=== PATIENT | male | born 1985 | race Caucasian/White ===

== ENCOUNTER 2016-09-16 13:21 | Emergency (ER) | payer SELFPAY ==
[~2016-09-16] VITALS: Ht 177.8 cm; Wt 72.6 kg
--- NOTE | 2016-09-16 13:53 | Emergency Room Report ---
History of Present Illness Time Seen by MD Vasquez Presenting Problem in Triage Pt arrived:Walked Presenting Problem:PT STATES HE FELL APPROX 8 FEET FROM A ROOF, PT STATE HE HIT IS FACE WHEN HE FELL. PT DENIES LOC OR DIZZINESS. PT DENIES VISION ISSUE. C/O PAIN IN NOSE ARE, NOSE IS OBVIOUSLY SWOLLEN WITH ABRASIONS NOTED. Onset of symptoms date/time:09/16/1607/23/1215 or onset unknown for: Treatment Prior to Arrival: [facility] Provided by: Sepsis Risk Assessment: Temp: 98.1 B/P: 151/92 MAP: 111 Pulse: 94 Resp: 18 Recent fever? N Clinical Suspician of Infection? N Mental Status: 1 - Regular (Normal Baseline) Sepsis Risk:Low Sepsis Risk Have you (or family members/close friends) recently traveled outside the [place]? N If Yes, where/when: Have you had exposure to infectious disease within the past month? N TB? Other? Specify: Comment The patient fell about 8 feet off a roof and hit his face on concrete. He denies loss of consciousness. He does not have a headache. He has a laceration above his RIGHT eyebrow and some abrasions or minor lacerations of his nose. He says currently he does not have any significant pain anywhere. No vomiting. No visual disturbance. No neck pain. No chest, abdominal or extremity injury. Tetanus shot is up-to-date. He did have epistaxis. He is able to breathe out of both nares. His dentition feels intact and his jaw does not hurt with movement. No facial numbness or diplopia. ALLERGIES Coded Allergies: No Known Allergies (09/16/16) Home Medications Reported Medications No Known Home Medications History Medical History General CAD? No Angina: No MO: No Hypertension? No Hyperlipidemia? No CHF? No DVT? No PE? No COPD? No Asthma? No Anemia? No GERD? No Gastric ulcers? No GI Bleed? No Hernia? No Thyroid Problems? No Hypothyroidism? No CVA? No Seizures? No Diabetes? No Renal Insuffiency? No End Stage Renal Disease? No UTI? No Stones? No BPH? No GB Disease: No Nephritic Syndrome? No Asplenia? No Hepatitis? No Sickle Cell Disease? No Arthritis? No Migraines? No Cataracts? No Glaucoma? No MRSA? No HIV? No TB? No Anxiety? No Depression? No Cancer? No More? No Immunization Hx DT/Tetanus 1-4 Years Ago Surgical Hx Previous Surgery?N Social History Smoking Hx Smoker: Never Smoker Tobacco: Yes Type Chew Packs/day < 1 Pack Alcohol Alcohol: No Review of Systems All Other Systems Reviewed and Negative ENT see HPI. Respiratory denies shortness of breath Cardiovascular denies chest pain, denies syncope Gastrointestinal denies abdominal pain, denies vomiting Musculoskeletal denies back pain, denies neck pain Psychiatric/Neurological denies headache Physical Exam Vital Signs Vital Signs Date Time Temp Pulse Resp B/P Pulse O2 O2 Flow FiO2 Ox Delivery Rate 09/16 1417 77 16 135/72 96 09/16 1322 98.1 94 18 151/92 96 General Appearance normal appearance, WD/WN Eye Exam - bilateral eye normal exam, bilateral eye PERRL, bilateral eye EOMI Ear, Nose, Throat hearing grossly normal, dried blood in both nares without active epistaxis. Nasal septum midline without septal hematomas. tenderness of the nasal bones. No gross deformity. Edema present., abrasions over the bridge of the nose along with a small 3 mm laceration., remainder of facial bones nontender., 2 cm laceration above RIGHT eyebrow, well approximated. Neck normal inspection, non-tender, supple, full range of motion Respiratory Status Yes: trachea midline, chest symmetrical, non tender chest. No: respiratory distress. Lung Sounds bilateral: normal breath sounds, lungs clear. Cardiovascular normal exam, regular rate/rhythm, no peripheral edema, no gallop, no JVD, no murmur, no rub, normal peripheral pulses Peripheral Pulses Pulses normal Yes Gastrointestinal normal bowel sounds, normal exam, non tender, soft, no organomegaly Back normal inspection, no CVA tenderness, no vertebral tenderness Extremities non-tender, normal range of motion, normal inspection Neurologic alert, melter loader II-XII nml as tested, normal exam, oriented x 3 Mental status normal mood/affect Skin intact, normal color, warm/dry Medical Decision Making LABS/Meds/Orders Pt receiving controlled substance in ED? Yes Guillaume was queried for this patient? No Reason not queried - emergent pt cond=no time Results/Orders Orders Procedure Date/time Status DIET-NOTHING BY MOUTH 09/16 D Active DERMABOND WOUND CLOSURE 09/[address] HEAD REQ 09/[address] SCAN REQ 09/16 133 Complete XRAY/CT/US XRAY/CT/US CT head, C-spine, maxillofacial Comment CT scan interpreted by radiologist: Maxillofacial: Comminuted nasal bone and nasal septum fractures. No septal hematoma seen. Cervical spine: Reversal of lordosis, no fracture or dislocation. Head: No acute intracranial process. Procedures Laceration/Wound Repair Progress Laceration Repair Performed by: RAJENDRA GALLEGOS Consent: Verbal consent obtained. Risks and benefits: risks, benefits and alternatives were discussed Consent given by: patient Patient identity confirmed: verbally with patient Laceration location: Face Laceration length: 3 cm Prep: Hibiclens cleansing. Normal saline irrigation. Sterile Drape. Patient sedated: no Closure material: Dermabond Complexity: simple Patient tolerance: Patient tolerated the procedure well with no immediate complications Departure Departure Disposition DC Home or Self Care(routine) Clinical Impression Primary Impression: Nasal bone fracture Qualifiers: Encounter type: initial encounter Fracture type: open Qualified Code: S02.2XXB - Fracture of nasal bones, initial encounter for open fracture Secondary Impressions: Facial abrasion Qualifiers: Encounter type: initial encounter Qualified Code: S00.81XA - Abrasion of other part of head, initial encounter Facial laceration Qualifiers: Encounter type: initial encounter Qualified Code: S01.81XA - Laceration without foreign body of other part of head, initial encounter Fall from roof Qualifiers: Encounter type: initial encounter Qualified Code: W13.2XXA - Fall from, out of or through roof, initial encounter Nasal septum fracture Qualifiers: Encounter type: initial encounter Fracture type: open Qualified Code: S02.2XXB - Fracture of nasal bones, initial encounter for open fracture Condition STABLE Referrals Eyad ROBERTS,Nico Winslow Call to set up appointment to be seen within one week Patient Instructions DI for Closed Head Injury, DI for Nose Fracture Additional Instructions Ice 20 minutes 4-5 times a day as needed for swelling and pain. Sleep with head elevated on several pillows for 2-3 days. Ibuprofen or [place] for pain. Follow-up with ears nose and throat within 1 week. Additional instructions for HEAD INJURY: Return immediately if severe headache, vomiting, problems with vision or speech, numbness or weakness of the extremities, or severe neck pain. Prescriptions Current Visit Scripts Cephalexin (Keflex 500MG) 500 MG PO QID #40 CAP HYDROCODONE/ACETAMINOPHEN ([place] 5-325 Tablet) 1 TAB PO Q6HP PRN pain #10 TAB Ibuprofen (Ibuprofen 800MG) 800 MG PO Q8HP PRN pain #15 TAB ED Critical Care Critical Care No at 0997
--- NOTE | 2016-09-16 14:23 | RADIOLOGY REPORT PS360 ---
CT HEAD W/O CONTRAST HISTORY: Headache following injury, right supraorbital abrasion FELL , PAIN COMPARISON: None TECHNIQUE: Axial images obtained without contrast. Brain and bone windows reviewed. FINDINGS: No midline shift, mass effect, intracranial hemorrhage, hydrocephalus, or extra-axial fluid collection is evident. The calvarium has an unremarkable appearance. No mastoid effusion. The visualized paranasal sinuses are unremarkable. Please see facial CT for description of facial fractures. IMPRESSION: No acute intracranial pathology.
--- NOTE | 2016-09-16 14:25 | RADIOLOGY REPORT PS360 ---
CT CERVICAL SPINE W/O CONT INDICATION: Neck pain following injury FELL , PAIN COMPARISON: None TECHNIQUE: Axial images are obtained without contrast. Sagittal and coronal reformatted images are reviewed as well. FINDINGS: Normal alignment. There is slight reversal cervical lordosis which may be due to patient positioning or muscle spasm. No fracture or dislocation. No prevertebral soft tissue swelling or lytic change. Lung apices are clear. IMPRESSION: 1. Reversal of lordosis otherwise negative CT cervical spine.
--- NOTE | 2016-09-16 14:29 | RADIOLOGY REPORT PS360 ---
CT SINUS (MAX-FACIAL W/O CONT) CLINICAL INDICATION: Facial pain and swelling following injury, nasal and right supraorbital abrasion FELL , PAIN COMPARISON: None TECHNIQUE:Axial, sagittal, and coronal images are generated and reviewed without contrast COMPARISON: None FINDINGS:Comminuted fracture involves the nasal bone bilaterally. There is mild leftward angulation of the distal aspect of the nasal bone as well as mild leftward displacement of the intranasal bone fragments by approximately 2 mm. There is a comminuted nasal septal fracture with a nondisplaced fracture involving the mid to anterior aspect of the nasal septum comminuted fracture involving the mid to posterior aspect of the nasal septum. The cortex is buckled toward the left at this area. There is soft tissue swelling over the nose. No sinus air-fluid level is evident. There is mild opacification of the right ethmoid sinus anteriorly and there are small retention cysts of the maxillary sinuses bilaterally. No other fractures are apparent. The orbits evident unremarkable appearance. IMPRESSION: 1. Comminuted nasal bone fracture. 2. Comminuted nasal septal fracture. No obvious septal hematoma
[2016-09-16] MEDS ORDERED: KEFLEX500 M1 PO (14:53)
[2016-09-16] MEDS ORDERED: IBUPROFEN800 MG PO (14:53)
[2016-09-16] MEDS ORDERED: NORCO 325 MG-51 TAB PO (14:53)
[2016-09-16 15:09] VITALS: BP 135/76
== END 2016-09-16 15:10 | disposition home or self-care (01) ==
LOC: ER 13:21
PROC: 0JQ10ZZ Repair Face Subcutaneous Tissue and Fascia, Open Approach (ICD-10-PCS; principal; 2016-09-16)
DX: S01.81XA Laceration without foreign body of other part of head, initial encounter (principal); S02.2XXB Fracture of nasal bones, initial encounter for open fracture; W13.2XXA Fall from, out of or through roof, initial encounter; F17.220 Nicotine dependence, chewing tobacco, uncomplicated
CPT/HCPCS: G0168